=== PATIENT | female | born 1965 | race Caucasian/White ===

== ENCOUNTER 2019-02-13 15:58 | Inpatient (IN) ==
[2019-02-13] MEDS ORDERED: ZOFRAN IV ONE (16:13)
[2019-02-13] MEDS ORDERED: NITROGLYCERIN TOP ONE (16:13)
[2019-02-13] MEDS ORDERED: CARDIZEM IV ONE ×2 (16:13→17:42)
[2019-02-13] MEDS ORDERED: MORPHINE IV ONE (16:13)
--- NOTE | 2019-02-13 16:55 | EKG Report ---
Test Performed on : 02/13/2019 4:06:05 PM Test Reason : CP Blood Pressure : / mmHG Vent. Rate : 168 BPM Atrial Rate : 256 BPM P-R Int : 000 ms QRS Dur : 134 ms QT Int : 292 ms P-R-T Axes : 000 025 134 degrees QTc Int : 488 ms Atrial flutter. with variable AV block. Left bundle branch block Abnormal ECG No previous ECGs available Unconfirmed Result
[2019-02-13 16:57] LABS: BASO# 0.03 X1000 (0.0-0.2); BASO% 0.2 % (0.0-0.8); EOS# 0.06 X1000 (0.0-0.7); EOS% 0.4 % (0.0-10.0); HEMATOCRIT 46.2 % (37.0-47.0); HEMOGLOBIN 14.7 g/dL (12.0-16.0); IMM GRAN# 0.06 X1000 (0.0-0.04); IMM GRAN% 0.4 % (0.0-0.5); LYMPH# 2.27 X1000 (1.2-3.4); LYMPH% 16.4 % (20.5-51.1); MCH 29.4 PG (27-31); MCHC 31.8 g/dL (33-37); MCV 92.4 FL (81-99); MONO# 0.75 X1000 (0.11-0.59); MONO% 5.4 % (1.7-9.3); MPV 10.3 FL (7.4-10.4); NEUT# 10.63 X1000 (1.4-6.5); NEUT% 77.2 % (42.2-75.2); PLT 273 X1000 (130-400); RDW 14.2 % (11.5-14.5)
[2019-02-13 17:04] LABS: INR 0.91
[2019-02-13 17:14] LABS: ALB/GLOB RATIO 1.5; ALBUMIN 4.2 g/dL (3.5-5.0); CALCIUM 9.1 mg/dL (8.8-10.2); MAGNESIUM 1.7 mg/dL (1.5-2.7); POTASSIUM 4.3 mmol/L (3.5-5.1); TOTAL BILIRUBIN 0.52 mg/dL (0.20-1.00)
--- NOTE | 2019-02-13 17:23 | Diag Imaging Result Doc PS360 ---
EXAM: CHEST-PORTABLE - 02/13/2019 HISTORY: CP TECHNIQUE: Portable chest COMPARISON: None. FINDINGS: Heart size appears mildly enlarged. There is mild prominence of central vascular markings. There is no consolidation, pleural effusion, or pneumothorax identified. There has been apparent right mastectomy. IMPRESSION: Mild cardiomegaly. Mild prominence of central vascular markings. No evidence of pneumonia. No pneumothorax. Electronically signed by Holger Martinez 02/13/2019 5:21 PM
[2019-02-13 17:32] LABS: PTT 22.8 Seconds (22.3-41.8)
[2019-02-13] MEDS: NS 1,000 ML IV ONE (17:43)
[2019-02-13] MEDS ORDERED: CARDIZEM 125 MG in NS 100 ML IV SCH (17:45)
[2019-02-13] MEDS ORDERED: LOVENOX SUBQ ONE (18:10)
--- NOTE | 2019-02-13 18:13 | PROVIDER DOCUMENTATION ---
This chart was entered by Sharri Wayne Scribe, acting as scribe for Vikash Galeana MD. HPI-Cardiac General - General Stated Complaint: HEART PROBLEMS? Time Seen by Provider: 02/13/19 16:08 Source: patient - History of Present Illness-Cardiac Nature of Presenting Problem: 53 yowf presents to er w/cc sob, irregular heart rate and rhythm. pt sts this has been happening intermittently for 3 months but son sts became worse around 1300 today. pt is in moderate distress and very anxious. pt has had echo and ct scan done. pt has fam hx of cardiac probs, mom had chf and . denies nvd, fever and chills. Review of Systems - Adult - REVIEW OF SYSTEMS - ADULT Constitutional: reports: no symptoms reported. denies: chills, fever, fatique Eyes: reports: no symptoms reported Ears, Nose, Mouth & Throat: reports: no symptoms reported Cardiovascular: reports: see HPI, irregular heart rate. denies: orthopnea, poor circulation, syncope Respiratory: reports: see HPI, shortness of breath. denies: cough, pleurisy, wheezing Gastrointestinal: reports: no symptoms reported Genitourinary: reports: no symptoms reported Musculoskeletal: reports: no symptoms reported Integumentary: reports: no symptoms reported Neurological: reports: no symptoms reported. denies: dizziness/vertigo, headache/migraines, syncope Psychiatric: reports: no symptoms reported Endocrine: reports: no symptoms reported Hematologic/Lymphatic: reports: no symptoms reported Allergic/Immunologic: reports: no symptoms reported All Other Systems: Reviewed and Negative Past History - Adult - PAST MEDICAL HISTORY-ADULT Review of Records: reports: Old Records Reviewed, Nursing Assessment Review, Medications Reviewed, Social history reviewed & non-contributory. Major Childhood Illnesses: reports: denies history Cardiovascular: reports: denies history Respiratory: reports: denies history Gastrointestinal: reports: denies history Obstetrical/Gynecological: reports: denies history Genitourinary: reports: denies history Musculoskeletal: reports: denies history Neurological: reports: denies history Endocrine/Immune: reports: denies history Other Conditions: reports: denies history - IMMUNIZATION STATUS Childhood Immunizations: See Nurse Assessment Flu Vaccine: See Nurse Assessment - FAMILY HISTORY Family History: reviewed, not pertinent Physical Exam-General - PHYSICAL EXAM-ADULT Initial Vital Signs Reviewed: Yes - CONSTITUTIONAL General Appearance: alert, moderate distress, anxious. negative: slow to respond, obtunded, combative - EYES Eyes: PERRL/EOMI, pink conjunctivae - HEAD, EARS, NOSE, MOUTH & THROAT HENMT: normocephalic/atraumatic, moist mucous membranes, normal ENT inspection - NECK Neck: non-tender, full range of motion, supple, normal inspection - RESPIRATORY Respiratory: chest non-tender, lungs clear, normal breath sounds - CARDIOVASCULAR Cardiovascular: normal peripheral pulses, no edema, no gallop, no JVD, no murmur , tachycardia, other (irregular rate and rhythm). negative: regular rate, rhythm - GASTROINTESTINAL (ABDOMEN) Abdominal Exam: normal bowel sounds, soft, no organomegaly, no pulsatile mass, tenderness (some epigastric tenderness). negative: non tender - LYMPHATIC Lymphatic: no adenopathy - MUSCULOSKELETAL Back Exam: normal inspection, no CVA tenderness, no vertebral tenderness Extremity: normal range of motion, non-tender, normal inspection Peripheral Pulses: radial (R): 2+, radial (L): 2+ - SKIN Integumentary: normal color, normal turgor, warm/dry - NEUROLOGIC Neurologic: grossly normal, no motor/sensory deficits - PSYCHIATRIC Psych/Mental Status: normal mood/affect, normal thought content, normal thought process, oriented x 3, anxious. negative: depressed affect, paranoid, tearful Progress - PLAN OF CARE/RESULTS Progress/Plan/Lab Results: Vital Signs - 8 hr 02/13/19 16:10 Temperature 98.2 F Pulse Rate 168 H Respiratory Rate 24 O2 Sat by Pulse Oximetry 98 Laboratory Results - last 24 hr 02/13/19 02/13/19 02/13/19 16:25 16:25 16:25 WBC 13.80 H RBC 5.00 Hgb 14.7 Hct 46.2 MCV 92.4 MCH 29.4 MCHC 31.8 L RDW Std Deviation 14.2 Plt Count 273 MPV 10.3 Immature Gran % (Auto) 0.4 Neut % (Auto) 77.2 H Lymph % (Auto) 16.4 L [place] % (Auto) 5.4 Eos % (Auto) 0.4 Baso % (Auto) 0.2 Immature Gran # (Auto) 0.06 H Neut # (Auto) 10.63 H Lymph # (Auto) 2.27 [place] # (Auto) 0.75 H Eos # (Auto) 0.06 Baso # (Auto) 0.03 PT INR PTT (Actin FS) Sodium 136 Potassium 4.3 Chloride 99 Carbon Dioxide 20 L Anion Gap 17 BUN 18 Creatinine 1.0 H Estimated GFR/1.73 m2 58 BUN/Creatinine Ratio 18 Glucose 224 H Calculated Osmolality 281 Calcium 9.1 Magnesium 1.7 Total Bilirubin 0.52 AST 139 H ALT 127 H Alkaline Phosphatase 87 Creatine Kinase 67 Troponin T Alg-K-Fflotjwxrfo Pept Total Protein 7.0 Albumin 4.2 Globulin 2.8 Albumin/Globulin Ratio 1.5 TSH 5.57 H 02/13/19 02/13/19 02/13/19 16:25 16:25 16:25 WBC RBC Hgb Hct MCV MCH MCHC RDW Std Deviation Plt Count MPV Immature Gran % (Auto) Neut % (Auto) Lymph % (Auto) [place] % (Auto) Eos % (Auto) Baso % (Auto) Immature Gran # (Auto) Neut # (Auto) Lymph # (Auto) [place] # (Auto) Eos # (Auto) Baso # (Auto) PT 13.0 INR 0.91 PTT (Actin FS) 22.8 Sodium Potassium Chloride Carbon Dioxide Anion Gap BUN Creatinine Estimated GFR/1.73 m2 BUN/Creatinine Ratio Glucose Calculated Osmolality Calcium Magnesium Total Bilirubin AST ALT Alkaline Phosphatase Creatine Kinase Troponin T < 0.010 [id number]-Othwnqylnbj Pept 5493 H Total Protein Albumin Globulin Albumin/Globulin Ratio TSH Orders Category Date Time Status Mis. NRSG Communication Order DIRECTED Care 02/13/19 17:43 Active Nursing- Obtain EKG once Care 02/13/19 16:12 Active Nursing- Obtain EKG once Care 02/13/19 17:23 Active CHEST-PORTABLE [RAD] Stat Exams 02/13/19 16:13 Completed CBC WITH ELECTRONIC DIFF [HEME] Stat Lab 02/13/19 16:25 Completed CK PROFILE [SP CHEM] Stat Lab 02/13/19 16:25 Completed COMPREHENSIVE METABOLIC PANEL [CHEM] Stat Lab 02/13/19 16:25 Completed MAGNESIUM [CHEM] Stat Lab 02/13/19 16:25 Completed PRO B-NATRIURETIC PEPTIDE Stat Lab 02/13/19 16:25 Completed PROTIME WITH INR [COAG] Stat Lab 02/13/19 16:25 Completed PTT [COAG] Stat Lab 02/13/19 16:25 Completed TROPONIN T Stat Lab 02/13/19 16:25 Completed TSH Stat Lab 02/13/19 16:25 Completed 0.9% Sodium Chloride Inj [Ns] 1,000 ml Med 02/13/19 17:43 Active IV 999 mls/hr 0.9% Sodium Chloride Inj [Ns] 100 ml Med 02/13/19 17:45 Active Diltiazem [Cardizem] 125 mg IV As Directed mls/hr Diltiazem [Cardizem] Med 02/13/19 17:42 Discontinued 20 mg IV NOW ONE Diltiazem [Cardizem] Med 02/13/19 16:13 Discontinued 25 mg IV NOW ONE Enoxaparin 1 mg/kg [Lovenox 1 mg/kg] Med 02/13/19 18:10 Once 1 each SUBQ NOW ONE Morphine Med 02/13/19 16:13 Discontinued 2 mg IV NOW ONE Nitroglycerin Med 02/13/19 16:13 Discontinued 0.5 inch TOP NOW ONE Ondansetron [Zofran] Med 02/13/19 16:13 Discontinued 4 mg IV NOW ONE EKG [EKG] Stat Ther 02/13/19 16:12 Draft EKG [EKG] Stat Ther 02/13/19 17:23 Ordered Result Diagrams: 02/13/19 16:25 02/13/19 16:25 - EKG 1 Time of EKG reading by physician:: 16:09 EKG Read and Signed by:: Vikash Galeana EKG Interpretation (*Must complete 3 of following elements*): Abnormal Rate: 168 Rhythm: A flutter [place]: normal QRS: LBB - XRAY 1 XRAY Study: Chest Impression: See EMR Report (EXAM: CHEST-PORTABLE - 02/13/2019 HISTORY: CP TECHNIQUE: Portable chest COMPARISON: None. FINDINGS: Heart size appears mildly enlarged. There is mild prominence of central vascular markings. There is no consolidation, pleural effusion, or pneumothorax identified. There has been apparent right mastectomy. IMPRESSION: Mild cardiomegaly. Mild prominence of central vascular markings. No evidence of pneumonia. No pneumothorax. Electronically signed by Holger Martinez 02/13/2019 5:21 PM) Comparison with other Films: no prior study - CONSULTS/PCP/HOSPITALIST Notification #1 *Consult/PCP/Hospitalist*: Mir Time Discussed: 18:12 Reason/Comments: admit, consult cardiology to see Consult Disposition: Will see in ED Departure - Departure Date of Disposition Decision: 02/13/19 Time of Disposition Decision: 18:12 DIAGNOSIS: New onset atrial fibrillation, Atrial fibrillation with RVR, New onset of congestive heart failure Disposition: ADMITTED INPATIENT 09 Certified Medical Emergency: Emergent Condition: Fair Referrals and Follow-Ups: Luke Nuñez MD [Primary Care Provider] - - Critical Care Note This patient required my direct & personal management of CC.: Yes Total Time (mins): 40 (multiple intervensions to control afib/cvs in peril) Critical Care Statement: This patient required my direct personal management to treat or rule out processes, the absence of which, could potentiallly result in sudden, clinically significant life or limb threatening deterioration. Attestation - Physician/ RONN Attestation Patient care was provided by Advanced Practice Provider:: No The physician spent face to face time with patient:: Yes Advanced Practice Provider documentation review:: Supervising physician onsite and consulted in the evaluation and care of this patient. The physician did have a face to face encounter with the patient. This chart was documented by the indicated scribe, (Sharri Wayne Scribe) and accurately reflects the services I performed and decisions made by me, Vikash Galeana MD, as attested by the provider's signature.
[2019-02-13] MEDS ORDERED: SYNTHROID PO ONE (18:17)
[2019-02-13] MEDS ORDERED: NS 1,000 ML IV ONE (18:45)
[2019-02-13] MEDS ORDERED: NS 1,000 ML IV SCH (18:45)
[2019-02-13] MEDS ORDERED: NEO-SYNEPHRINE 50 MG in NS 250 ML IV PRN (18:48)
[2019-02-13] MEDS ORDERED: LASIX IV SCH ×2 (19:15→19:30)
--- NOTE | 2019-02-13 19:57 | HISTORY AND PHYSICAL ---
CHIEF COMPLAINT: Shortness of breath, palpitations. HISTORY OF PRESENT ILLNESS: This is a 53-year-old female, with a history of COPD, recent pneumonia, diabetes mellitus, COPD, who presents to the emergency room complaining of shortness of breath and irregular heart rate intermittently for the last 3 months. She stated, "I felt like I wasn't going to make it through this spell." Therefore, she presented to the emergency room. She was found to be in atrial fibrillation with RVR, heart rates to 160s to 170s. She was given Cardizem bolus as well as a L of fluid. Pressures dropped to the 80 to 90 systolic range, but at the time of my exam, systolic is staying 100 to 106. Heart rates are in the 120s to 140s at this time. She does continue to complain of some shortness of breath, feeling that she just needs to take a good deep breath, palpitations, and being anxious. She did state that she had an echocardiogram done about [address] Cornelius's office, who follows her for her COPD. She reports being told that "it looks good" by his office personnel. She was found to have a TSH of 5.5. She states that no one has ever told her that she had hypothyroid or has had any abnormal labs. PAST MEDICAL HISTORY: 1. Chronic obstructive pulmonary disease. 2. Diabetes mellitus type 2. 3. Recent pneumonia. 4. Hypertension. ALLERGIES: No known drug allergies. SOCIAL HISTORY: Denies alcohol, tobacco, or illicit drug use. HOME MEDICATIONS: A list will be obtained by the nursing staff and once verified, will review and restart as appropriate. REVIEW OF SYSTEMS: Discussed with the patient with pertinent positives stated in the HPI. She denied any syncope or dizziness, any productive cough, fever, chills, any night sweats, any nausea, vomiting, diarrhea, constipation, black or bloody vomitus or stools, any hematuria, dysuria, frequency, urgency. PHYSICAL EXAMINATION: GENERAL: This is a 53-year-old female who is sitting up in the stretcher in the ER in mild distress. VITAL SIGNS: Blood pressure is 101/64 with a heart rate ranging from the 120s to 150s, respirations are 22 to 24, temperature is 98.2 degrees oral, with room air saturations 92% to 94%. EYES: Pupils equal, round, and react to light. EOMs are intact. Sclerae are anicteric. HEENT: Head is normocephalic, atraumatic. Mucous membranes are dry. NECK: Supple with trachea midline. No JVD. CARDIOVASCULAR: Irregularly irregular rate and rhythm. S1 and S2 are appreciated. No murmur. She has no lower extremity edema. Peripheral pulses palpable x4 extremities. Calves are nontender bilaterally. PULMONARY: Breath sounds are clear with no increased work of breathing noted. Chest rises and falls symmetrically with respiration. Chest wall is nontender to palpation. GASTROINTESTINAL: Soft, nontender, and nondistended with bowel sounds in all 4 quadrants. GENITOURINARY: She has no CVA or suprapubic tenderness. NEUROLOGIC: She is alert and oriented x3. SKIN: Warm and dry. LABS: WBC is 13 with hemoglobin of 14.7, hematocrit 46.2, platelets of 273,000. INR is 0.91. Sodium 136, potassium 4.3, BUN 18, creatinine 1, with a glucose of 224. Troponin is negative. ProBNP is 5493 with a TSH of 5.57. Chest x-ray revealed mild cardiomegaly, mild prominence of central vascular markings. There is no consolidation, pleural effusion, or pneumothorax identified. There has been a right mastectomy. EKG revealed atrial flutter with a variable rate at 168. Telemetry at present reveals an irregularly irregular rate and rhythm, atrial fibrillation in the 120s to 150s. ASSESSMENT AND PLAN: 1. Atrial fibrillation with rapid ventricular response. We will give Lovenox 1 mg/kg every 12 hours. Will obtain an echocardiogram. Will consult Cardiology. She was given Cardizem bolus. Will start a Cardizem drip. 2. Hypotension. This is very likely secondary to number 1. Yanick-Synephrine as stated above if needed. 3. History of chronic obstructive pulmonary disease. At present, lungs are clear. Will use Xopenex and Atrovent every 4 hours as needed for wheezing or shortness of breath. restart her home medications as appropriate 4. Hypoxemia. She did state that she had oxygen saturations of [address] Cornelius's office, and she was under the impression she was going to be ordered home oxygen. Will check room air saturations in the morning and reevaluate. 5. Hypertension. At present, she is hypotensive, but we will identify her home medications. 6. Hypothyroid. This is a new diagnosis. Will start levothyroxine tonight and then daily and recheck her labs. 7. Diabetes mellitus type 2. Will do patterned blood glucose with sliding scale insulin. 8. For gastrointestinal prophylaxis, Prilosec. Discussed with Dr Short Further treatments pending hospital course Dictated by PEBBLES Bello for Liu Short MD cc: PEBBLES Bello MD [facility]
[2019-02-13] MEDS: CARDIZEM PO SCH (20:00)
--- NOTE | 2019-02-13 20:09 | HISTORY AND PHYSICAL ---
ADDENDUM: The patient came in with atrial fibrillation with RVR. She has had a very protracted course of it. She sees Dr. Cornelius for COPD. She has had several rounds of antibiotics and she is getting treatment of that. Now she has felt that this is possibly her heart, but she has gotten several courses of antibiotics including she just finished azithromycin. Reportedly, she got some Lasix last week and she felt better, like there was less shortness of breath. Today, she is clearly in atrial fibrillation with RVR. She has a degree of heart failure on her chest x-ray. No clear pneumonia, but she does have perihilar vascular congestion. I do feel she has some degree of heart failure. AST and ALT are elevated proBNP is 5400. So, we will admit her for rate control. In the process of setting up her IV Cardizem, she has spontaneously converted. Of course, this will not potentially last, so we will maintain her on p.o. Cardizem at this point. She needs to be anticoagulated. I think MEL score is at least 2. She is female, possibly hypertensive. We will give her some low-dose diuretics and see how she does. Her blood pressure is a bit on the low side, but we will continue to monitor. She may need the institution of pressors depending on how she does with the p.o. Cardizem. I agree with cardiology consultation and echocardiogram when available, although, she has had an echocardiogram apparently at Dr. Cornelius's office, but we have no access to any of that data and this may be a cor pulmonale situation. It is difficult to say. This is 32 minute critical care time for IV Cardizem that was given, but now she is on oral Cardizem with Kamala Schreiber. cc: Liu Short MD
[2019-02-13] MEDS: HUMALOG SUBQ SCH (21:00)
[2019-02-13] MEDS ORDERED: NS 500 ML IV ONE (21:20)
[2019-02-14] MEDS: CARDIZEM PO SCH ×4 (02:00→21:02)
--- NOTE | 2019-02-14 02:12 | ED EKG INTERP ---
This chart was entered by Payal Osman Scribe, acting as scribe for Yeimy Perez MD. EKG Interpretation - EKG Time of EKG reading by physician:: 18:59 EKG Read and Signed by:: Yeimy Perez EKG Interpretation (*Must complete 3 of following elements*): Abnormal (sinus tacycardia, possible left atrial enlargement, Nonspecific T wave abnormality. Abnormal ECG) Rate: 106 Rhythm: sinus tachycardia [place]: normal QRS: normal Attestation - Physician/ RONN Attestation Patient care was provided by Advanced Practice Provider:: No The physician spent face to face time with patient:: Yes Advanced Practice Provider documentation review:: Supervising physician onsite and consulted in the evaluation and care of this patient. The physician did have a face to face encounter with the patient. This chart was documented by the indicated scribe, (Payal Osman Scribe) and accurately reflects the services I performed and decisions made by me, Yeimy Perez MD, as attested by the provider's signature.
[2019-02-14] MEDS: ATROVENT NEB INH PRN ×6 (02:23→22:43)
[2019-02-14 06:28] LABS: BASO# 0.02 X1000 (0.0-0.2); BASO% 0.3 % (0.0-0.8); EOS# 0.11 X1000 (0.0-0.7); EOS% 1.4 % (0.0-10.0); HEMATOCRIT 39.9 % (37.0-47.0); HEMOGLOBIN 12.8 g/dL (12.0-16.0); IMM GRAN# 0.02 X1000 (0.0-0.04); IMM GRAN% 0.3 % (0.0-0.5); LYMPH# 3.09 X1000 (1.2-3.4); LYMPH% 39.6 % (20.5-51.1); MCH 29.4 PG (27-31); MCHC 32.1 g/dL (33-37); MCV 91.7 FL (81-99); MONO# 0.53 X1000 (0.11-0.59); MONO% 6.8 % (1.7-9.3); MPV 10.5 FL (7.4-10.4); NEUT# 4.04 X1000 (1.4-6.5); NEUT% 51.6 % (42.2-75.2); PLT 248 X1000 (130-400); RBC 4.35 XMIL (4.2-5.4); RDW 14.1 % (11.5-14.5); WBC 7.81 X1000 (4.8-10.8)
[2019-02-14 06:46] LABS: AGAP 15; ALB/GLOB RATIO 1.7; ALBUMIN 3.8 g/dL (3.5-5.0); ALKALINE PHOSPHATASE 63 U/L (32-104); BUN 16 mg/dL (8-22); CALCIUM 8.4 mg/dL (8.8-10.2); CHLORIDE 109 mmol/L (98-107); COSMO 288; CREATININE 0.6 mg/dL (0.5-0.9); ESTIMATED GFR > 60; GLUCOSE 128 mg/dL (70-104); GOT 79 U/L (10-30); GPT 122 U/L (10-36); MAGNESIUM 1.6 mg/dL (1.5-2.7); POTASSIUM 4.4 mmol/L (3.5-5.1); SODIUM 143 mmol/L (136-145); TCO2 19 mmol/L (25-35); TOTAL BILIRUBIN 0.35 mg/dL (0.20-1.00)
[2019-02-14] MEDS: PRILOSEC PO SCH (06:52)
[2019-02-14] MEDS: HUMALOG SUBQ SCH ×4 (06:53→21:00)
[2019-02-14] MEDS: SYNTHROID PO SCH (06:54)
--- NOTE | 2019-02-14 07:09 | EKG Report ---
Test Performed on : 02/14/2019 06:54:34 AM Test Reason : Afib/RVR Blood Pressure : / mmHG Vent. Rate : 105 BPM Atrial Rate : 105 BPM P-R Int : 154 ms QRS Dur : 096 ms QT Int : 374 ms P-R-T Axes : 052 015 082 degrees QTc Int : 494 ms Sinus tachycardia. Possible Left atrial enlargement Borderline ECG When compared with ECG of 13-FEB-2019 20:27, (Unconfirmed) premature supraventricular complexes. are no longer present Confirmed by Shahid Viramontes MD ([id number]) on 02/15/2019 4:43:42 PM
--- NOTE | 2019-02-14 07:17 | EKG Report ---
Test Performed on : 02/13/2019 8:27:15 PM Test Reason : Afib/rv Blood Pressure : / mmHG Vent. Rate : 107 BPM Atrial Rate : 107 BPM P-R Int : 152 ms QRS Dur : 098 ms QT Int : 344 ms P-R-T Axes : 055 -02 068 degrees QTc Int : 459 ms Sinus tachycardia. with premature supraventricular complexes. Possible Left atrial enlargement Nonspecific T wave abnormality Abnormal ECG When compared with ECG of 13-FEB-2019 18:58, (Unconfirmed) premature supraventricular complexes. are now present Unconfirmed Result
--- NOTE | 2019-02-14 07:17 | EKG Report ---
Test Performed on : 02/13/2019 6:58:36 PM Test Reason : repeat EKG Blood Pressure : / mmHG Vent. Rate : 106 BPM Atrial Rate : 106 BPM P-R Int : 154 ms QRS Dur : 096 ms QT Int : 356 ms P-R-T Axes : 040 -05 069 degrees QTc Int : 472 ms Sinus tachycardia. Possible Left atrial enlargement Nonspecific T wave abnormality Abnormal ECG When compared with ECG of 13-FEB-2019 16:06, (Unconfirmed) Sinus rhythm. has replaced Atrial flutter. Vent. rate has decreased BY 62 BPM Left bundle branch block is no longer present Unconfirmed Result
--- NOTE | 2019-02-14 07:31 | Diag Imaging Result Doc PS360 ---
EXAM: US GB < RUQ (LIMITED) 02/14/2019 HISTORY: elevated liver enzymes TECHNIQUE: Right upper quadrant ultrasound COMMENT: The visualized portions of the aorta and inferior vena cava are within normal limits. The liver is hyperechoic. There is antegrade flow in the portal vein. The common bile duct is not distended measuring less than 5 mm. The gallbladder is surgically absent. The pancreas is unremarkable in appearance. There are no abnormal fluid collections. The right kidney is without evidence of hydronephrosis or mass. IMPRESSION: Hepatic steatosis. Electronically signed by Jose Lo 02/14/2019 7:29 AM
[2019-02-14] MEDS ORDERED: LOVENOX SUBQ SCH (09:00)
[2019-02-14] MEDS: XOPENEX NEB INH PRN ×4 (09:53→22:43)
[2019-02-14] MEDS: LASIX IV SCH ×2 (13:38→21:00)
--- NOTE | 2019-02-14 13:54 | ECHO REPORT ---
ORDER DATE: 02/14/2019 INDICATION: Atrial fibrillation with rapid ventricular response, shortness of breath, hyperthyroidism. FINDINGS: 1. The right atrium is moderately enlarged. 2. Severe tricuspid regurgitation with RV systolic pressure of 65 suggesting pulmonary hypertension. 3. Normal RV size and systolic function. 4. Moderate pulmonic insufficiency. 5. Severe left atrial enlargement with a volume index of 54. 6. No mitral valve prolapse. There is severe mitral regurgitation. 7. Dilated left ventricle with an end-diastolic dimension of 5.8. Normal wall thicknesses with posterior and interventricular septal wall thickness of 1.0 cm each. Severe reduction in LV systolic function with an estimated EF of 20%. Global hypokinesis. 8. The aortic valve opens well. No evidence of stenosis or insufficiency. 9. The aorta appears normal in visualized segments. 10. No pericardial effusion seen. IMPRESSION: 1. Severe reduction in left ventricular systolic function with a dilated left ventricle. 2. Severe left atrial enlargement and moderate right atrial enlargement. 3. Severe tricuspid regurgitation with pulmonary hypertension. 4. Severe mitral regurgitation. cc: MD Gabi Rubi CRNP
[2019-02-14] MEDS ORDERED: MAGNESIUM SULFATE 2 GM/S.W.I. 2 GM/50 ML IVPB IV ONE (15:39)
--- NOTE | 2019-02-14 17:01 | PROGRESS NOTE ---
DATE: 02/14/2019 SUBJECTIVE: The patient complains of shortness of breath with minimal exertion. She states that this is been getting worse over the last several months. OBJECTIVE: Vital Signs: Temperature 98.3 degrees, blood pressure 118/78, heart rate 109, respirations 22. O2 saturations 96% on 3 L nasal cannula. General: This is a overweight female sitting in bed in no acute distress. Heart: S1, S2 normal. Tachycardic. Lungs: Diminished breath sounds at the bases. No wheezing or rales. Abdomen: Positive bowel sounds. Soft, obese, nontender, nondistended. Extremities: No edema, no cyanosis. Neurologic: The patient is alert and oriented x4. LABS: White blood cell count 7.8, hemoglobin 12, hematocrit 39, platelets 248,000. Sodium 143, potassium 4.4, chloride 109, CO2 19, BUN 16, creatinine 0.6 glucose 123, magnesium 1.6. Troponin less than 0.01 x 2. ASSESSMENT AND PLAN: 1. Acute hypoxemic respiratory failure. Multifactorial. The patient has chronic obstructive pulmonary disease , severe pulmonary hypertension, atrial fibrillation, and cardiomyopathy. 2. Atrial fibrillation with rapid ventricular response. Improved. The patient's rate control drugs have been adjusted by the devulcanizer tender. We will continue to follow closely. 3. Chronic obstructive pulmonary disease exacerbation. We will consult with the vascular physician for further recommendations. 4. Severe cardiomyopathy. The workup is in progress. 5. Pulmonary hypertension. Aware. 6. Obesity. The patient has been counseled about weight loss and proper diet. cc: Amee Biggs MD MTDD
--- NOTE | 2019-02-14 17:03 | CONSULTATION ---
DATE OF CONSULTATION: 02/14/2019 IMPRESSION: 1. Episode of atrial flutter with rapid ventricular rate, spontaneously converted back to sinus rhythm. Patient was symptomatic with prominent palpitations. This potentially may have been recurrent episode as she has had some lesser palpitations over the last several months. 2. Chronic obstructive pulmonary disease with recent exacerbation that seems to be rather persistent despite treatment. Cannot entirely exclude a component of either right-sided heart failure or diastolic left ventricular dysfunction/heart failure. 3. Longstanding hypertension for at least 15 years. 4. Obesity. RECOMMENDATIONS: 1. Continue diltiazem for rate control. 2. Continue anticoagulation with Lovenox transitioning to Eliquis in light of her CHADS-VASc score of 3. 3. Echocardiography. 4. Continue diuresis further to see her clinical response. She does have some mild neck vein distention suggesting some volume excess at this point. 5. Ultimately patient would benefit from screening study for coronary disease with a sestamibi study. However, for now will hold off on this until patient is clinically improved. 6. TSH only slightly elevated with normal free T4. Doubt hypothyroidism. HISTORY: This 53-year-old white female with past history of COPD/chronic recurrent bronchitis, longstanding hypertension, and previous cigarette use in the past was admitted with dyspnea and prominent palpitations. She was found to be in atrial flutter with rapid ventricular rate. She spontaneously converted back to sinus rhythm. She has been on anticoagulation and diltiazem. She has had difficulty over the last 2 or 3 months with dyspnea symptoms as well as cough with minimal sputum production. She has been through several rounds of antibiotics and also received a course of some steroids as well as Trelegy inhaler. Despite all this she has failed to improve. She has had some mild palpitations that were brief over the last few months. However, yesterday she developed prominent tachy palpitations and felt increased shortness of breath prompting her to come in for evaluation. It was at this point she was found to be in atrial flutter with rapid ventricular rate. She started on intravenous Cardizem and Lovenox. She has spontaneously converted back to sinus rhythm. She has continued to require supplemental oxygen due to a tendency for hypoxemia. She does have history of obstructive sleep apnea and uses CPAP. PAST MEDICAL HISTORY: 1. COPD/chronic recurrent bronchitis. 2. Type 2 diabetes mellitus. 3. Longstanding hypertension for at least 15 years. 4. Obstructive sleep apnea. 5. Obesity. PAST SURGICAL HISTORY: None. ALLERGIES: She has no known drug allergies. MEDICATIONS PRIOR TO ADMISSION: As listed. SOCIAL HISTORY: She is . She quit smoking 12 years ago and previously smoked pack and half cigarettes per day for approximately 30 years. She does not use alcohol. FAMILY HISTORY: Negative for premature coronary disease. REVIEW OF SYSTEMS: Pulmonary: Noteworthy for shortness of breath and nonproductive cough. Gastrointestinal: Negative. Constitutional: Negative for fever. Remainder of review of systems negative/noncontributory with 14 total systems reviewed. PHYSICAL EXAMINATION: General: This is a obese, middle-aged white female in no distress on supplemental oxygen. Vital signs: Blood pressure 115/79, heart rate 105 beats per minute. HEENT: Extraocular movements appear intact. Mucous membranes are moist. Neck: Supple. Jugular distention is evident suggesting central venous pressure of 10 to 12. There are no carotid bruits. Chest: Clear to auscultation bilaterally. Cardiac: Reveals a regular rate and rhythm without appreciable murmur or gallop. Abdomen: Soft. Bowel sounds are normal. Extremities: Without edema. Neurologic: Reveals her to be alert and fully oriented. Speech is fluent. She moves all 4 extremities equally well. Skin: Warm, dry. Psychiatric: Reveals mood to be appropriate. DATA: A 12-lead EKG obtained on presentation demonstrates atrial flutter with variable AV block and heart rate 168 beats per minute and left bundle branch block. Repeat ECG has shown sinus tachycardia with occasional premature supraventricular complex, left atrial abnormality and nonspecific T-wave abnormality. LABORATORY DATA: Includes sodium 143, potassium 4.4, chloride 104, carbon dioxide 19, BUN 16, creatinine 0.6, glucose 128, CPK 66, troponin T less than 0.01. TSH 5.57, free T4 1.17. White blood cell count 7.81, hematocrit 39.9, hemoglobin 12.8, platelet count 248,000. cc: Edilberto Miranda MD
[2019-02-14] MEDS: ELIQUIS PO SCH (21:02)
[2019-02-15] MEDS: HUMALOG SUBQ SCH ×4 (06:09→22:28)
[2019-02-15] MEDS: PRILOSEC PO SCH (06:24)
[2019-02-15] MEDS: SYNTHROID PO SCH (06:24)
[2019-02-15 07:20] LABS: HEMATOCRIT 41.1 % (37.0-47.0); HEMOGLOBIN 13.4 g/dL (12.0-16.0); MCH 29.8 PG (27-31); MCHC 32.6 g/dL (33-37); MCV 91.3 FL (81-99); MPV 9.9 FL (7.4-10.4); RBC 4.5 XMIL (4.2-5.4); RDW 14.2 % (11.5-14.5); WBC 7.26 X1000 (4.8-10.8)
[2019-02-15 07:43] LABS: AGAP 11; BUN 14 mg/dL (8-22); CALCIUM 8.9 mg/dL (8.8-10.2); CHLORIDE 101 mmol/L (98-107); COSMO 281; CREATININE 0.6 mg/dL (0.5-0.9); ESTIMATED GFR > 60; GLUCOSE 156 mg/dL (70-104); MAGNESIUM 1.7 mg/dL (1.5-2.7); POTASSIUM 3.6 mmol/L (3.5-5.1); SODIUM 139 mmol/L (136-145); TCO2 27 mmol/L (25-35)
--- NOTE | 2019-02-15 08:14 | Diag Imaging Result Doc PS360 ---
EXAM: CHEST-2 VIEWS HISTORY: dypsnea TECHNIQUE: Chest two views COMPARISON: 02/13/2019 FINDINGS: The lungs are hyperexpanded. There are tiny bilateral pleural effusions. Heart is mildly enlarged. Mild vascular distention. There are surgical clips in the axilla. No lung nodules identified. IMPRESSION: Mild pulmonary edema with tiny pleural effusions. Electronically signed by Owen Alejandre 02/15/2019 8:11 AM
[2019-02-15] MEDS ORDERED: CARDIZEM CD PO SCH (09:00)
[2019-02-15] MEDS: ELIQUIS PO SCH (09:48)
[2019-02-15] MEDS: TESSALON PO SCH ×3 (09:53→18:22)
[2019-02-15] MEDS ORDERED: LASIX IV ONE (18:47)
--- NOTE | 2019-02-15 21:12 | PROGRESS NOTE ---
DATE: 02/15/2019 SUBJECTIVE: The patient is sitting up in bed. She states that she feels a little bit better today. She is on room air. OBJECTIVE: Vital Signs: Temperature 98 degrees, blood pressure 131/71, heart rate 107, respirations 26, O2 saturation is 98% on room air. General: This is a morbidly obese female sitting up in bed in no acute distress. Heart: S1, S2 normal. Tachycardic. Lungs: Equal air entry bilaterally. No wheezing. No rales. Abdomen: Positive bowel sounds. Soft, nontender, nondistended. Extremities: No edema. No cyanosis. No calf tenderness. Neurologic: The patient is alert and oriented x4. LABORATORY DATA: Reviewed. ASSESSMENT AND PLAN: 1. Atrial fibrillation. Continue on the current regimen as directed by the slitter and cutter operator. 2. Severe cardiomyopathy. Workup as per the slitter and cutter operator. 3. Chronic obstructive pulmonary disease exacerbation. Continue with bronchodilator therapy and supplemental oxygen. 4. Pulmonary hypertension. Aware. 5. Obesity. The patient has been counseled about weight loss and proper diet. 6. Deep vein thrombosis prophylaxis. The patient is currently on Eliquis. cc: Amee Biggs MD
[2019-02-15] MEDS: COREG PO SCH (22:25)
--- NOTE | 2019-02-15 22:28 | CARDIOLOGY PROGRESS NOTE ---
DATE: 02/15/2019 SUBJECTIVE: Patient reports feeling dramatic improvement with her shortness of breath symptoms following diuresis since yesterday. She denies shortness of breath or chest discomfort on room air. She recalls having some sort of viral illness perhaps 3 or 4 months ago, after which she started having progressive problems with shortness of breath. There is no background history of angina, although she did relate when she came in, she would have a tendency for mild chest tightness radiating up into her neck when she would lie flat, which sounds more like orthopnea. This would also be associated with increase in shortness of breath. At any rate, she appears to have improved considerably from a symptom standpoint following diuresis since yesterday. OBJECTIVE: Blood pressure 131/71, heart rate 107 and regular with ECG showing sinus tachycardia. Oxygen saturation 98% on room air. Jugular venous distention is no longer evident.Chest: Clear to auscultation bilaterally. Cardiac Exam: Regular tachycardia without appreciable murmur or gallop. Extremities: Without edema. LABORATORY DATA: Includes white blood cell count of 7.26, hematocrit 41.1, hemoglobin 13.4, platelet count 245,000. Sodium 139, potassium 3.6, chloride 101, carbon dioxide 27, BUN 14, creatinine 0.6, glucose 156. Initial troponin less than 0.01. Followup troponin less than 0.01. Echocardiography from yesterday reports severe tricuspid regurgitation with moderate pulmonary hypertension, normal right ventricular size and function, severe left atrial enlargement, severe mitral regurgitation, mild LV enlargement with estimated ejection fraction of 20% in the setting of global hypokinesis. IMPRESSION: 1. Acute on chronic systolic heart failure. Patient improving with diuresis. 2. Severe cardiomyopathy. 3. Severe mitral regurgitation. 4. Recent atrial flutter. Patient continues in sinus tachycardia. 5. Longstanding hypertension. 6. History of previous breast cancer in the past treated with chemotherapy. The last chemotherapy was well over 10 years ago. 7. Diabetes mellitus type 2. RECOMMENDATIONS: 1. Gently diurese further and start oral Lasix. 2. Initiate carvedilol. 3. Initiate low-dose angiotensin receptor blocking agent. 4. Further definitive evaluation of cardiomyopathy with cardiac catheterization planned. Will interrupt recently initiated Eliquis and consider pursuing this on Wednesday morning. The rationale for pursuing cardiac catheterization and potential hazards were reviewed with the patient and she agreed to proceed. cc: Edilberto Miranda MD
[2019-02-16 05:37] LABS: HEMATOCRIT 42.7 % (37.0-47.0); HEMOGLOBIN 14.1 g/dL (12.0-16.0); MCH 29.4 PG (27-31); MCV 89.1 FL (81-99); MPV 9.9 FL (7.4-10.4); RBC 4.79 XMIL (4.2-5.4); RDW 13.9 % (11.5-14.5); WBC 6.97 X1000 (4.8-10.8)
[2019-02-16 05:53] LABS: AGAP 11; BUN 16 mg/dL (8-22); CHLORIDE 104 mmol/L (98-107); COSMO 283; CREATININE 0.6 mg/dL (0.5-0.9); ESTIMATED GFR > 60; GLUCOSE 145 mg/dL (70-104); POTASSIUM 3.5 mmol/L (3.5-5.1); SODIUM 140 mmol/L (136-145); TCO2 25 mmol/L (25-35)
[2019-02-16] MEDS: HUMALOG SUBQ SCH ×4 (06:01→21:48)
[2019-02-16] MEDS: SYNTHROID PO SCH (06:05)
[2019-02-16] MEDS: PRILOSEC PO SCH (06:05)
--- NOTE | 2019-02-16 06:33 | Diag Imaging Result Doc PS360 ---
EXAM: CHEST-PORTABLE HISTORY: dyspnea TECHNIQUE: Portable chest single view COMPARISON: 02/15/2019 FINDINGS: The lungs are well expanded. The heart is not enlarged. The vessels are mildly distended. There are no infiltrates. No effusion identified. There are surgical clips in each axilla. IMPRESSION: Mild interval improvement. Electronically signed by Owen Alejandre 02/16/2019 6:31 AM
--- NOTE | 2019-02-16 07:40 | EKG Report ---
Test Performed on : 02/16/2019 07:01:18 AM Test Reason : For Heart Cath Blood Pressure : / mmHG Vent. Rate : 087 BPM Atrial Rate : 087 BPM P-R Int : 160 ms QRS Dur : 102 ms QT Int : 388 ms P-R-T Axes : 039 -10 054 degrees QTc Int : 466 ms Normal sinus rhythm. Possible Left atrial enlargement Left ventricular hypertrophy T wave abnormality, consider anterior ischemia Prolonged QT Abnormal ECG When compared with ECG of 14-FEB-2019 06:54, T wave inversion now evident in Anterior leads QT interval has lengthened. Confirmed by Shahid Viramontes MD ([id number]) on 02/19/2019 11:29:42 AM
[2019-02-16] MEDS: COZAAR PO SCH (08:08)
[2019-02-16] MEDS: TESSALON PO SCH ×3 (08:08→16:38)
[2019-02-16] MEDS: COREG PO SCH ×2 (08:08→21:45)
[2019-02-16] MEDS ORDERED: CARDIZEM CD PO SCH (09:00)
[2019-02-16] MEDS: LASIX PO SCH ×2 (09:32→11:18)
[2019-02-16 13:43] LABS: HEPATITIS PROFILE ACUTE SEE COMMENTS
[2019-02-16] MEDS ORDERED: PREDNISONE PO ONE (18:39)
[2019-02-16] MEDS ORDERED: LANOXIN IV ONE (18:41)
--- NOTE | 2019-02-16 19:01 | PROGRESS NOTE ---
DATE: 02/16/2019 SUBJECTIVE: The patient continues without shortness of breath or chest discomfort on room air. She reports continued improvement. OBJECTIVE: Vital Signs: Blood pressure 117/71, heart rate 95, with ECG monitor showing sinus rhythm. Oxygen saturation 94 to 96 percent on room air. Neck: There is no significant jugular venous distention. Chest: The chest clear to auscultation. Cardiac: Exam reveals a regular rate and rhythm without appreciable murmur or gallop. There is no evidence of peripheral edema. LABORATORY DATA: Includes a white blood cell count 6.97, hematocrit 42.7, hemoglobin 14.1, platelet count 245,000. Sodium 140, potassium 3.5, chloride 104, carbon dioxide 25, BUN 16, creatinine 0.6, glucose 145. IMPRESSION: 1. Acute on chronic systolic heart failure. Patient improving with current management and diuresis. 2. Severe cardiomyopathy. 3. Severe mitral regurgitation. 4. Recent episode of atrial flutter. Patient continues in sinus tachycardia. 5. Hypertension, longstanding. 6. History of previous breast cancer in the past treated with chemotherapy over 10 years ago. 7. Type 2 diabetes mellitus. RECOMMENDATIONS: 1. Continue current cardiovascular regimen. 2. Add digoxin. 3. Continue to hold Eliquis for now with plans to pursue cardiac catheterization tomorrow morning. 4. Left heart catheterization with selective coronary geography recommended for definitive evaluation of cardiomyopathy in the setting of risk factors for coronary disease. The rationale for this approach along with potential hazards were discussed with the patient and she wished to proceed. cc: Edilberto Miranda MD
--- NOTE | 2019-02-16 20:41 | PROGRESS NOTE ---
DATE: 02/16/2019 SUBJECTIVE: The patient is resting comfortably in bed. She states that she feels a lot better. She is now on room air. OBJECTIVE: Vital Signs: Temperature 98.2 degrees, blood pressure 117/41, heart rate 85, respirations 16, O2 saturations 94% on room air. General: Morbidly obese female sitting up in bed in no acute distress. Heart: S1, S2 normal. Tachycardic. Lungs: Equal air entry bilaterally. No wheezing. No rales. No rhonchi. Abdomen: Positive bowel sounds. Soft, nontender, nondistended. Extremities: No edema. Neurologic: The patient is alert and oriented x4. LABS: Reviewed. ASSESSMENT AND PLAN: 1. Acute on chronic systolic congestive heart failure exacerbation. Continue with management as directed by the bullion weigher. The patient is scheduled to undergo a heart catheterization. 2. Severe cardiomyopathy. Aware. 3. Atrial flutter. The patient is in normal sinus rhythm. Continue on the current cardiac regimen. 4. Chronic obstructive pulmonary disease. Continue with bronchodilator therapy. 5. Diabetes mellitus type 2. Continue on sliding scale insulin. 6. Morbid obesity. The patient has been counseled about weight loss and proper diet. 7. Hypothyroidism. Continue on Synthroid. cc: Amee Biggs MD
[2019-02-16] MEDS: PEPCID PO SCH (21:45)
[2019-02-17 05:55] LABS: HEMATOCRIT 47.1 % (37.0-47.0); HEMOGLOBIN 15.4 g/dL (12.0-16.0); MCH 29.8 PG (27-31); MCHC 32.7 g/dL (33-37); MCV 91.1 FL (81-99); MPV 10.7 FL (7.4-10.4); RBC 5.17 XMIL (4.2-5.4); RDW 14.1 % (11.5-14.5); WBC 5.82 X1000 (4.8-10.8)
[2019-02-17 06:02] LABS: INR 0.94; PROTIME 13.3 Seconds (11.0-16.0)
[2019-02-17 06:03] LABS: PTT 23.3 Seconds (22.3-41.8)
[2019-02-17] MEDS: HUMALOG SUBQ SCH ×4 (06:20→20:44)
[2019-02-17 06:35] LABS: AGAP 13; BUN 17 mg/dL (8-22); CALCIUM 9.6 mg/dL (8.8-10.2); CHLORIDE 103 mmol/L (98-107); COSMO 291; CREATININE 0.7 mg/dL (0.5-0.9); ESTIMATED GFR > 60; GLUCOSE 250 mg/dL (70-104); POTASSIUM 4.5 mmol/L (3.5-5.1); SODIUM 141 mmol/L (136-145); TCO2 25 mmol/L (25-35)
[2019-02-17] MEDS: PRILOSEC PO SCH ×2 (07:35→11:28)
[2019-02-17] MEDS: TESSALON PO SCH ×4 (07:35→17:16)
[2019-02-17] MEDS: LANOXIN PO SCH ×2 (07:36→11:27)
[2019-02-17] MEDS ORDERED: HEPARIN 1000 UNITS/NS 2,000 UNIT/1,000 ML IV.SOLN ONE (07:36)
[2019-02-17] MEDS: COREG PO SCH ×3 (07:36→20:15)
[2019-02-17] MEDS: SYNTHROID PO SCH ×2 (07:36→11:28)
[2019-02-17] MEDS: COZAAR PO SCH ×2 (07:36→11:27)
[2019-02-17] MEDS: PEPCID PO SCH ×2 (07:36→11:28)
--- NOTE | 2019-02-17 07:49 | EKG Report ---
Test Performed on : 02/17/2019 06:39:27 AM Test Reason : pre heart cath Blood Pressure : / mmHG Vent. Rate : 093 BPM Atrial Rate : 093 BPM P-R Int : 150 ms QRS Dur : 100 ms QT Int : 382 ms P-R-T Axes : 039 -21 053 degrees QTc Int : 474 ms Normal sinus rhythm. Possible Left atrial enlargement Left ventricular hypertrophy T wave abnormality, consider anterolateral ischemia Nonspecific T wave abnormality Inferior leads Prolonged QT Abnormal ECG When compared with ECG of 16-FEB-2019 07:01, (Unconfirmed) Nonspecific T wave abnormality, worse in Inferior leads Confirmed by Shahid Viramontes MD ([id number]) on 02/19/2019 12:07:03 PM
[2019-02-17] MEDS ORDERED: NS 1,000 ML ONE (07:54)
[2019-02-17] MEDS ORDERED: CLAVE TWINSITE 32 IN 11959 ONE (07:54)
[2019-02-17] MEDS ORDERED: CLAVE PUMP SET NO FILTER 12260 ONE (07:54)
[2019-02-17] MEDS ORDERED: VERSED ONE (07:55)
[2019-02-17] MEDS ORDERED: MORPHINE ONE (07:55)
[2019-02-17] MEDS ORDERED: BENADRYL ONE (08:00)
--- NOTE | 2019-02-17 09:56 | EKG Report ---
Test Performed on : 02/17/2019 09:36:22 AM Test Reason : post heart cath Blood Pressure : / mmHG Vent. Rate : 083 BPM Atrial Rate : 083 BPM P-R Int : 164 ms QRS Dur : 102 ms QT Int : 382 ms P-R-T Axes : 053 006 004 degrees QTc Int : 448 ms Normal sinus rhythm. Minimal voltage criteria for LVH, may be normal variant T wave abnormality, consider anterior ischemia Abnormal ECG When compared with ECG of 17-FEB-2019 06:39, (Unconfirmed) No significant change was found Confirmed by Shahid Viramontes MD ([id number]) on 02/19/2019 12:13:47 PM
[2019-02-17] MEDS ORDERED: NS 1,000 ML IV SCH (10:00)
[2019-02-17] MEDS ORDERED: ULTRAM PO PRN (10:35)
[2019-02-17] MEDS: LASIX PO SCH ×2 (11:30→17:11)
--- NOTE | 2019-02-17 13:54 | CARDIAC CATH REPORT ---
PROCEDURE NAME: - PROCEDURE PERFORMED: Left heart catheterization, selective coronary angiography and left ventriculography. INDICATIONS: Severe cardiomyopathy in patient with multiple risk factors for coronary disease. ENTRY SITE: Right femoral artery. CATHETERS USED: 5-[place] JL4, 3DRC, and angled pigtail. TECHNIQUE: After intravenous sedation with Benadryl, Versed, and morphine, local anesthesia with lidocaine was applied over the right femoral artery. Arterial access was with subsequently established with placement of a 5-[place] sheath in the right femoral artery using modified Seldinger technique. A selective coronary angiography was performed. Following this, left heart catheterization and left ventriculography were performed. Upon completion of the procedure, the arterial sheath was removed from the right femoral artery and hemostasis facilitated with manual pressure. The patient tolerated the procedure without apparent complications. FINDINGS: Hemodynamics: Aortic pressure 111/66 with a mean of 84, left ventricular pressure 109 over EDP of 20. Comments on hemodynamics: There is no significant gradient across the aortic valve demonstrated on pullback from left ventricle. ANGIOGRAPHY: 1. Left ventriculogram - The left ventricle is moderately dilated with severe global hypokinesis. Estimated left ejection fraction approximately 20%. There is moderate to severe mitral regurgitation. 2. Left main coronary - The left main coronary is angiographically normal. 3. Left anterior descending coronary - The left anterior descending coronary artery and its branches are free of significant coronary stenosis. 4. Left circumflex coronary - The left circumflex coronary is a codominant and is free of significant coronary stenosis. 5. Right coronary - The right coronary is codominant. The conus branch arises via a separate ostium. There is no significant stenosis in the right coronary or its branches. CONCLUSIONS: 1. Severe nonischemic cardiomyopathy. 2. Moderate to severe mitral regurgitation. RECOMMENDATIONS: Medical management of patient's severe nonischemic cardiomyopathy. cc: Edilberto Miranda MD
--- NOTE | 2019-02-17 20:12 | PROGRESS NOTE ---
DATE: 02/17/2019 SUBJECTIVE: Patient continues without chest discomfort or shortness of breath on room air. She underwent cardiac catheterization earlier today which demonstrated severe nonischemic cardiomyopathy, moderate to severe mitral regurgitation. OBJECTIVE: Vital Signs: Blood pressure 127/82, heart rate 96, oxygen saturation 98% on room air. There is no significant jugular venous distention. Chest: Clear to auscultation. Cardiac: Regular rate and rhythm without appreciable murmur or gallop. There is no evidence of peripheral edema. LABORATORY DATA: Includes a white blood cell count of 5.82, hematocrit 47.1, hemoglobin 15.4, platelet count 244,000. Sodium 141, potassium 4.5, chloride 103, [*]25, BUN 17, creatinine 0.7, glucose 250. IMPRESSION: 1. Acute on chronic systolic heart failure. Patient improved with current management and diuresis. 2. Severe nonischemic cardiomyopathy. 3. Moderate to severe mitral regurgitation possibly related to left ventricular enlargement. 4. Recent episode of atrial flutter without recurrence. Patient continues in sinus rhythm. 5. Hypertension, longstanding. 6. History of previous breast cancer in the past treated with chemotherapy over 10 years ago. 7. Type 2 diabetes mellitus. RECOMMENDATIONS: 1. Continue medical management for patient's severe nonischemic cardiomyopathy. Increase carvedilol as tolerated. Continue losartan, digoxin and daily Lasix. 2. Resume anticoagulation with Eliquis given recent atrial flutter and cardiomyopathy. Patient has significant CHADS-VASc score consistent with thromboembolic risk. 3. If further atrial fibrillation or atrial flutter, consider suppressing atrial tachyarrhythmias with amiodarone. 4. Observe patient overnight. She appears to be sufficiently stable to probably go home tomorrow morning. I will be happy to see her again for follow-up in approximately 2 weeks after discharge. cc: Edilberto Miranda MD
[2019-02-17] MEDS: ELIQUIS PO SCH (20:15)
--- NOTE | 2019-02-18 02:57 | PROGRESS NOTE ---
DATE: 02/17/2019 SUBJECTIVE: The patient was seen once she returned from the cardiac catheterization this morning. She complains of mild back pain. OBJECTIVE: Vital Signs: Temperature 97.8 degrees, blood pressure 127/82, heart rate 96, respirations 17, O2 saturation is 98% on room air. General: This is a middle-aged female, lying in bed in no acute distress. Heart: S1, S2, normal. Lungs: Equal air entry bilaterally. No crackles, no rales. Abdomen: Positive bowel sounds. Soft, nontender, nondistended. Extremities: No edema, no cyanosis. Neurologic: The patient is alert and oriented x4. LABORATORY: Reviewed. ASSESSMENT AND PLAN: 1. Acute on chronic systolic congestive heart failure exacerbation. Improved. Management as per the director digital advertising. 2. Severe nonischemic cardiomyopathy. Patient's heart catheterization showed normal coronaries. Continue with medical therapy. 3. Chronic obstructive pulmonary disease. Stable. Continue with bronchodilator therapy. 4. Morbid obesity. The patient has been counseled about weight loss. 5. Hypothyroidism. Continue on Synthroid. 6. Atrial flutter. Continue on Coreg, digoxin, and Eliquis. 7. Diabetes mellitus type 2. Continue on sliding scale insulin. cc: Amee Biggs MD
[2019-02-18 05:56] LABS: HEMATOCRIT 45.1 % (37.0-47.0); HEMOGLOBIN 15.1 g/dL (12.0-16.0); MCHC 33.5 g/dL (33-37); MCV 89.5 FL (81-99); MPV 9.9 FL (7.4-10.4); RBC 5.04 XMIL (4.2-5.4); RDW 14.1 % (11.5-14.5); WBC 6.77 X1000 (4.8-10.8)
[2019-02-18] MEDS: PRILOSEC PO SCH (06:03)
[2019-02-18] MEDS: SYNTHROID PO SCH (06:03)
[2019-02-18] MEDS: HUMALOG SUBQ SCH (06:10)
[2019-02-18] MEDS ORDERED: MAGNESIUM SULFATE 2 GM/S.W.I. 2 GM/50 ML IVPB IV ONE (06:39)
[2019-02-18 06:47] LABS: AGAP 16; BUN 17 mg/dL (8-22); CHLORIDE 103 mmol/L (98-107); COSMO 289; CREATININE 0.6 mg/dL (0.5-0.9); ESTIMATED GFR > 60; GLUCOSE 168 mg/dL (70-104); POTASSIUM 3.6 mmol/L (3.5-5.1); SODIUM 142 mmol/L (136-145); TCO2 23 mmol/L (25-35)
[2019-02-18 08:31] VITALS: BP 113/70
[2019-02-18] MEDS: ELIQUIS PO SCH (09:53)
[2019-02-18] MEDS: TESSALON PO SCH (09:53)
[2019-02-18] MEDS: LANOXIN PO SCH (09:54)
[2019-02-18] MEDS: COZAAR PO SCH (09:54)
[2019-02-18] MEDS: LASIX PO SCH (09:54)
[2019-02-18] MEDS: COREG PO SCH (09:55)
== END 2019-02-18 12:00 | disposition home or self-care (01) | DRG 286 ==
LOC: ED 15:58 → SUATTDRO 21:02 → EDIPHOLD 21:02 → 3N 02-14 09:48 → 3S 02-15 23:16
PROVIDERS: ATTEND Internal Medicine
CPT/HCPCS: 71010; 71020; 71045; 71046; 76705; 80048; 80053; 80074; 82550; 82948; 83735; 83880; 84100; 84439; 84443; 84484; 85025; 85027; 85610; 85730; 93005; 93010; 93306; 93458; 94640; 94760; 94761; A9270; J1160; J1200; J1644; J1650; J1815; J1940; J2250; J2270; J2405; J3475; J7030; J7040; J7506; J7512; Q9967; XXXXX